=== PATIENT | female | born 1960 | race Caucasian/White ===

== ENCOUNTER 2022-06-07 05:12 | Emergency (ER) | payer BC ==
[2022-06-07] MEDS ORDERED: ALBUTEROL 2.5 MG/3 ML NEB SOL ONE ×2 (05:48→05:51)
[2022-06-07] MEDS ORDERED: IPRATROPIUM BROM 0.5MG/2.5ML ONE (05:49)
[2022-06-07] MEDS ORDERED: predniSONE 20 MG TAB ONE (05:49)
[2022-06-07 06:05] LABS: Absolute Lymphocytes (CBC) 0.5 K/uL (0.7-4.9); Hematocrit 37.4 % (36.0-45.0); Lymphocytes % 10.8 % (15.3-44.8); MCV 84.9 fL (80-100); MPV 7.7 fL (7.6-11.3); RBC Red Blood Cell Count 4.41 M/uL (3.86-4.86)
[2022-06-07 06:22] LABS: Bilirubin Total 0.4 mg/dL (0.2-1.0); Potassium 4.3 mmol/L (3.5-5.1); Protein, Total 7.9 g/dL (6.4-8.2); Troponin High Sensitivity 5.7 pg/mL (<58.9)
--- NOTE | 2022-06-07 06:40 | EDPHYS ---
Physician Documentation [facility] Name: Cielo Downs Age: 61 yrs Sex: Female : 1960 Arrival Date: 06/07/2022 Time: 05:19 Bed 13 Private MD: ED Physician Rubio Durbin HPI: 06/07 05:56 This 61 yrs old Female presents to ER via Unassigned with complaints of Flu Symptoms, rt Allergy Symptoms. 05:56 Onset: The symptoms/episode began/occurred 1 week(s) ago. Severity of symptoms: At rt their worst the symptoms were mild. Patient presents to the ED with cough, rhinorrhea, wheezing. She states that this is typical of her asthma. She states that she does not believe that she has the flu or COVID. She reports a chest tightness that occurs with the coughing. Denies other acute complaints at this time. Symptoms are mild in severity, no other aggravating or alleviating factors.. Historical: - Allergies: 07:14 No Known Allergies; pf1 - Immunization history:: Adult Immunizations unknown. - Family history:: not pertinent. - Social history:: Smoking status: Patient/guardian denies using. ROS: 05:56 Constitutional: Negative for fever, chills, and weight loss, Eyes: Negative for injury, rt pain, redness, and discharge, Neck: Negative for injury, pain, and swelling, Abdomen/GI: Negative for abdominal pain, nausea, vomiting, diarrhea, and constipation, MS/Extremity: Negative for injury and deformity, Skin: Negative for injury, rash, and discoloration, Neuro: Negative for headache, weakness, numbness, tingling, and seizure, Psych: Negative for depression, anxiety, suicide ideation, homicidal ideation, and hallucinations. 05:56 ENT: Positive for rhinorrhea, sore throat. 05:56 Cardiovascular: Positive for chest pain, Negative for edema. 05:56 Respiratory: Positive for cough, shortness of breath. Exam: 05:56 Constitutional: This is a well developed, well nourished patient who is awake, alert, rt and in no acute distress. Head/Face: Normocephalic, atraumatic. Eyes: Pupils equal round and reactive to light, extra-ocular motions intact. Lids and lashes normal. Conjunctiva and sclera are non-icteric and not injected. Cornea within normal limits. Periorbital areas with no swelling, redness, or edema. Chest/axilla: Normal chest wall appearance and motion. Nontender with no deformity. No lesions are appreciated. Cardiovascular: Regular rate and rhythm with a normal S1 and S2. No gallops, murmurs, or rubs. Normal PMI, no JVD. No pulse deficits. Abdomen/GI: Soft, non-tender, with normal bowel sounds. No distension or tympany. No guarding or rebound. No evidence of tenderness throughout. Skin: Warm, dry with normal turgor. Normal color with no rashes, no lesions, and no evidence of cellulitis. MS/ Extremity: Pulses equal, no cyanosis. Neurovascular intact. Full, normal range of motion. Neuro: Awake and alert, GCS 15, oriented to person, place, time, and situation. Cranial nerves II-XII grossly intact. Motor strength 5/5 in all extremities. Sensory grossly intact. Cerebellar exam normal. Normal gait. Psych: Awake, alert, with orientation to person, place and time. Behavior, mood, and affect are within normal limits. 05:56 ECG was reviewed by the Attending Physician. 05:56 Respiratory: Faint wheezes heard on all lung thacker, no respiratory distress. Vital Signs: 05:35 BP 125 / 83; Pulse 94; Resp 20; Temp 98.4; Pulse Ox 98% ; Weight 97.52 kg; Height 5 ft. rv1 4 in. (162.56 cm); 06:30 BP 128 / 73; Pulse 93; Resp 16; Temp 98; Pulse Ox 100% on R/A; Pain 0/10; pf1 05:35 Body Mass Index 36.90 (97.52 kg, 162.56 cm) rv1 MDM: 05:30 Patient medically screened. rt 06:40 Differential Diagnosis: Bronchitis Upper Respiratory Infection Asthma Exacerbation rt Pneumonia. Data reviewed: vital signs, nurses notes, lab test result(s), EKG, radiologic studies. ED course: Patient presents to the ED with a cough, the chest tightness is mostly likely due to an asthma exacerbation. EKG, troponin are unremarkable. I personally interpreted the patient's chest x-ray, no evidence of pneumonia, pneumothorax, pulmonary edema. Symptoms are improved with bronchodilators. She has stable vital signs. She is stable for outpatient care, return precautions were discussed. 06/07 05:39 Order name: CBC with Diff; Complete Time: 06:16 rt 06/07 05:39 Order name: CMP; Complete Time: 06:23 rt 06/07 05:39 Order name: Troponin High Sensitivity; Complete Time: 06:23 rt 06/07 05:39 Order name: BNP; Complete Time: 06:23 rt 06/07 05:39 Order name: Chest Single View XRAY rt 06/07 05:39 Order name: EKG; Complete Time: 05:40 rt 06/07 05:39 Order name: EKG - Nurse/Tech; Complete Time: 05:48 rt EC:56 Rate is 86 beats/min. Rhythm is regular, Normal Sinus Rhythm with No ectopy. QRS [place] rt is Normal. NM interval is normal. QRS interval is normal. QT interval is normal. No Q waves. T waves are Normal. No ST changes noted. Interpreted by me. Administered Medications: 05:55 Drug: predniSONE 40 mg Route: PO; ha1 06:06 Follow up: Response: No adverse reaction pf1 05:58 Drug: DuoNeb (albuterol 2.5 mg, ipratropium 0.5 mg) (3:1) (2.5 mg - 0.5 mg) 3 ml Route: pf1 Nebulizer; 06:06 Follow up: Response: No adverse reaction; Marked relief of symptoms pf1 Disposition Summary: 06/07/22 06:39 Discharge Ordered Location: Home rt Problem: an acute exacerbation rt Symptoms: have improved rt Condition: Stable rt Diagnosis - Unspecified asthma with (acute) exacerbation rt Followup: rt - With: Private Physician - When: 2 - 3 days - Reason: Discharge Instructions: - Discharge Summary Sheet rt - Asthma, Adult rt Forms: - Medication Reconciliation Form rt - Thank You Letter rt - Antibiotic Education rt - Prescription Opioid Use rt Prescriptions: - Tessalon Perles 100 mg Oral Capsule - take 1 capsule by ORAL route every 8 hours As needed; 15 capsule; Refills: 0, rt Product Selection Permitted - Prednisone 20 mg Oral Tablet - take 1 tablet by ORAL route once daily for 4 days; 4 tablet; Refills: 0, rt Product Selection Permitted Signatures: Dispatcher [employer] Bing Douglass RN RN ha1 Rubio Durbin MD MD rt myles, Lynne, RN RN pf1
--- NOTE | 2022-06-07 06:40 | ER ---
Nurse's Notes [facility] [place] Name: Cielo Downs Age: 61 yrs Sex: Female : 1960 Arrival Date: 06/07/2022 Time: 05:19 Bed 13 Private MD: Diagnosis: Unspecified asthma with (acute) exacerbation Presentation: 06/07 05:30 Chief complaint: Patient states: Dry productive cough with congestion,onset 6 days, pf1 intermittent chest tightness for 3 days when coughing. Coronavirus screen: Client denies travel out of the [place] in the last 14 days. Client presents with at least one sign or symptom that may indicate coronavirus-19. Standard/surgical mask placed on the client. 05:30 Method Of Arrival: Ambulatory pf1 05:30 Ebola Screen: Patient negative for fever greater than or equal to 101.5 degrees pf1 Fahrenheit, and additional compatible Ebola Virus Disease symptoms. Onset: The symptoms/episode began/occurred gradually, 3 day(s) ago. Anaphylaxis evaluation, no signs or symptoms of anaphylaxis were noted. Initial Sepsis Screen: Does the patient meet any 2 criteria? No. Patient's initial sepsis screen is negative. Does the patient have a suspected source of infection? No. Patient's initial sepsis screen is negative. Risk Assessment: Do you want to hurt yourself or someone else? Patient reports no desire to harm self or others. Onset of symptoms was June 01, 2022. 05:30 Acuity: JOHANA 3 pf1 Historical: - Allergies: 07:14 No Known Allergies; pf1 - Immunization history:: Adult Immunizations unknown. - Family history:: not pertinent. - Social history:: Smoking status: Patient/guardian denies using. Screenin:40 [facility] ED Fall Risk Assessment (Adult) History of falling in the last 3 months, pf1 including since admission No falls in past 3 months (0 pts) Confusion or Disorientation No (0 pts) Intoxicated or Sedated No (0 pts) Impaired Gait No (0 pts) Mobility Assist Device Used No (0 pt) Altered Elimination No (0 pt) Score/Fall Risk Level 0 - 2 = Low Risk Oriented to surroundings, Maintained a safe environment, Educated pt \T\ family on fall prevention, incl call for assistance when getting out of bed, Assessed \T\ reinforced patient's understanding of fall precautions, Provided non-skid footwear, Hourly rounding (assess needs \T\ fall precautionary measures) done, Used ambulatory aids as needed (educated on \T\ assisted with), Used gait belt as appropriate. 05:40 Abuse screen: Denies threats or abuse. pf1 05:40 Nutritional screening: No deficits noted. Tuberculosis screening: No symptoms or risk pf1 factors identified. Assessment: 05:30 General: Appears in no apparent distress. comfortable, well groomed, well developed, pf1 Behavior is calm, cooperative, appropriate for age, quiet. 05:30 Pain: Complains of pain in mid chest tightness,onset for 3 days with dry cough for 6 pf1 days Pain currently is 4 out of 10 on a pain scale. Neuro: No deficits noted. Level of Consciousness is awake, alert, obeys commands, Oriented to person, place, time, situation. Cardiovascular: No deficits noted. Capillary refill < 3 seconds Patient's skin is warm and dry. Chest pain began 3 days. Respiratory: Airway is patent Trachea midline Respiratory effort is even, unlabored, Respiratory pattern is regular, symmetrical. 05:30 Respiratory: Reports shortness of breath cough that is dry, pain with cough Pain is 4 pf1 out of 10 on a pain scale. Breath sounds with wheezes bilaterally. with SOB. 05:30 GI: No deficits noted. No signs and/or symptoms were reported involving the pf1 gastrointestinal system. : No deficits noted. No signs and/or symptoms were reported regarding the genitourinary system. EENT: No deficits noted. No signs and/or symptoms were reported regarding the EENT system. Vital Signs: 05:35 BP 125 / 83; Pulse 94; Resp 20; Temp 98.4; Pulse Ox 98% ; Weight 97.52 kg; Height 5 ft. rv1 4 in. (162.56 cm); 06:30 BP 128 / 73; Pulse 93; Resp 16; Temp 98; Pulse Ox 100% on R/A; Pain 0/10; pf1 05:35 Body Mass Index 36.90 (97.52 kg, 162.56 cm) rv1 ED Course: 05:19 Patient arrived in ED. ja2 05:30 Rubio Durbin MD is Attending Physician. rt 05:30 Patient has correct armband on for positive identification. Placed in gown. Bed in low pf1 position. Call light in reach. 05:30 Arm band placed on left wrist. pf1 05:35 Lynne myles, RN is Primary Nurse. pf1 05:40 No provider procedures requiring assistance completed. Inserted saline lock: 20 gauge pf1 in left antecubital area, using aseptic technique. Blood collected. 05:58 Troponin High Sensitivity Sent. pf1 05:58 CMP Sent. pf1 05:58 CBC with Diff Sent. pf1 05:58 BNP Sent. pf1 06:06 Triage completed. pf1 06:11 Chest Single View XRAY In Process Unspecified. EDMS 07:00 IV discontinued, intact, bleeding controlled, No redness/swelling at site. Pressure pf1 dressing applied. Administered Medications: 05:55 Drug: predniSONE 40 mg Route: PO; ha1 06:06 Follow up: Response: No adverse reaction pf1 05:58 Drug: DuoNeb (albuterol 2.5 mg, ipratropium 0.5 mg) (3:1) (2.5 mg - 0.5 mg) 3 ml Route: pf1 Nebulizer; 06:06 Follow up: Response: No adverse reaction; Marked relief of symptoms pf1 Medication: 07:15 VIS not applicable for this client. pf1 Outcome: 06:39 Discharge ordered by . rt 07:13 Discharged to home ambulatory. pf1 07:13 Condition: improved 07:13 Discharge instructions given to patient, Instructed on discharge instructions, follow up and referral plans. medication usage, Demonstrated understanding of Prescriptions given X 2. 07:15 Patient left the ED. pf1 Signatures: Dispatcher [employer] [facility] Bing Antoine, RN RN ha1 Rubio Durbin MD MD rt Lynne myles, RN RN pf1 Twyla Martin rv1
[2022-06-07 07:22] VITALS: BP 128/73; TEMP 98; O2SAT 100
--- NOTE | 2022-06-07 16:25 | EKG ---
Test Date: 2022-06-07 Test Time: 05:44:21 Denture Waxer: YUNIOR MEASUREMENT RESULTS: Intervals: Rate: 86 MS: 176 QRSD: 86 QT: 364 QTc: 435 [place]: P: 28 MS: 176 QRS: 41 T: 46 INTERPRETIVE STATEMENTS: Normal sinus rhythm Normal ECG No previous ECG available for comparison Electronically Signed On 06-07-22 16:24:21 TAX MAP TECHNICIAN by Brett Loja
--- NOTE | 2022-06-08 12:32 | RAD REPORT ---
EXAM DESCRIPTION: RAD - Chest Single View - 06/07/2022 6:10 am: CLINICAL HISTORY: COUGH COMPARISON: None. FINDINGS: Single frontal radiograph view of the chest. Cardiomediastinal silhouette: Normal size and contour. Lungs: No consolidation, pneumothorax, or pleural effusion. Low lung volumes. Bones: Degenerative change of the spine. Leads overlie the chest. Upper abdomen: No abnormality identified. IMPRESSION: 1. No acute pulmonary process identified. Low lung volumes. Electronically signed by: Jeovanny Bush 06/07/2022 7:17 AM INSULATION CUTTER AND FORMER Due to temporary technical issues with the PACS/Fluency reporting system, reports are being signed by the in house radiologists without review as a courtesy to insure prompt reporting. The interpreting radiologist is fully responsible for the content of the report.
== END 2022-06-07 07:15 | disposition home or self-care (01) ==
LOC: ER 05:12
DX: J45.901 Unspecified asthma with (acute) exacerbation (principal)
CPT/HCPCS: 93005; 85025; 36415; 84484; 80053; 83880; 71045; 94640; 99284; J7512; J7613 ×2; J7644